=== PATIENT | male | born 1995 | race Asian ===

== ENCOUNTER 2018-12-16 07:04 | Day surgery (SDC) | payer OTHER ==
--- NOTE | 2018-12-06 16:01 | HP ---
CC: Dr. 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 Mr Bishop was evaluated by Dr. Barrios at [facility] because of partial phimosis and distal penile pain. He was also noted to have some episodes of balanitis requiring topical antibiotic treatment. He reports that for many years, he has noted a tight foreskin with discomfort upon retraction. This condition becomes more bothersome during erections. There have not been any episodes of urinary tract infections or voiding symptoms. The patient has not been sexually active recently. history is otherwise completely negative. No history of any voiding symptoms , urinary tract infections, or scrotal or testicular pain. PAST MEDICAL HISTORY AND SYSTEM REVIEW: He is in excellent health. He denies any cardiac or pulmonary diseases or symptoms. MEDICATIONS: He is on no chronic medications. ALLERGIES: He denies any allergies to medications. FAMILY HISTORY: Negative. SOCIAL HISTORY: He denies any alcohol intake and denies smoking. No recreational drug use. PHYSICAL EXAMINATION GENERAL: He is a pleasant and healthy-looking male. VITAL SIGNS: Blood pressure 110/70, pulse of 80. LUNGS: Normal. HEART: Normal. EXTERNAL GENITALIA: He is not circumcised. There is a partial phimosis. There are no penile lesions seen. The urethral meatus looks normal. Testes feel normal without any masses. No inguinal hernias. DIAGNOSTIC STUDIES/LAB DATA: His urinalysis is negative. IMPRESSION: Moderate symptomatic phimosis with past history of balanitis. PLAN/RECOMMENDATIONS: I discussed the options of management and the patient wants to proceed with a circumcision. I discussed the circumcision including the potential complications of infection and increased sensitivity of the glans penis. All his questions were answered. [id number]/[facility] #: [id number] [facility]ITALArmaan
[~2018-12-16 07:04] MED LIST: Buffered Lidocaine 1% SYRIN* 1 ML/SYRINGE INTRADERM ONE; Famotidine IV* 10 MG/ML 2 ML (20 mg) IV ONE; Lactated Ringers 1000 ML Bag* 1,000 ML IV SCH
[2018-12-16] MEDS ORDERED: Buffered Lidocaine 1% SYRIN* 1 ML/SYRINGE INTRADERM ONE (08:19)
[2018-12-16] MEDS ORDERED: Famotidine IV* 10 MG/ML 2 ML (20 mg) ONE (08:19)
[2018-12-16] MEDS ORDERED: Midazolam* 1 MG/ML 5 ML VIAL (5 MG) ONE (08:24)
[2018-12-16] MEDS ORDERED: fentaNYL* 50 MCG/ML 2 ML VIAL (100 MCG VIAL) ONE (08:24)
[2018-12-16] MEDS ORDERED: Bacitracin OINTMENT* 0.5% 0.5 oz TUBE ONE (09:50)
[2018-12-16] MEDS ORDERED: Lidocaine 1% INJ* 10 MG/ML 30 ML SDV ONE (09:50)
[2018-12-16] MEDS ORDERED: Bupivacaine 0.5%* 50 ML MDV VIAL ONE (10:34)
[2018-12-16] MEDS ORDERED: Ondansetron INJ* 2 MG/ML VIAL ONE (11:02)
[2018-12-16] MEDS ORDERED: Propofol* 10 MG/ML 20 ML BTL ONE ×2 (11:02→11:18)
[2018-12-16] MEDS ORDERED: Lidocaine 2% PF * 5 ML VIAL ONE (11:03)
[2018-12-16] MEDS ORDERED: DiMENhydriNATE IV* 50 MG/ML VIAL IV PUSH PRN (11:13)
[2018-12-16] MEDS ORDERED: oxyCODONE TAB* 5 MG TAB PO PRN (11:13)
[2018-12-16] MEDS ORDERED: Acetaminophen TAB* 325 MG PO PRN (11:13)
[2018-12-16] MEDS ORDERED: Naloxone* 0.4 MG/ML 1 ML VIAL IV PRN (11:13)
[2018-12-16] MEDS ORDERED: Ketorolac INJ* 15 MG/ML 1 ML VIAL IV PUSH ONE (12:02)
[2018-12-16] MEDS ORDERED: Ketorolac INJ* 30 MG/ML 1 ML VIAL ONE (12:06)
--- NOTE | 2018-12-16 12:48 | OP ---
CC: Dr. Brayan Barrios, [facility] * DATE OF OPERATION: 12/16/18 - [facility] DATE OF : 89 SURGEON: Dr. Khan. ANESTHESIOLOGIST: Dr. Gambino. ANESTHESIA: Penile block, IV sedation with MAC. PRE-OP DIAGNOSIS: Partial phimosis. POST-OP DIAGNOSIS: Partial phimosis. OPERATIVE PROCEDURE: Circumcision. INDICATION FOR PROCEDURE: Mr. Bishop is a 23-year-old male who was referred by Dr. Brayan Barrios at [facility] because of symptomatic phimosis. The condition has been bothersome especially during erections with some discomfort and the tight foreskin causing distal penile pain. There have not been any episodes of urinary tract infections. Physical examination confirmed partial phimosis. No penile lesion seen. I discussed the options of management and the patient elected to proceed with the circumcision. PATHOLOGY: Exam under anesthesia again showed partial phimosis. The urethral meatus looked normal. There were no changes of balanitis. There were no lesions noted on the glans penis or on the foreskin. DESCRIPTION OF PROCEDURE: With the patient in the supine position and after intravenous sedation with anesthesia monitoring, a total of 12 cc of 0.5% Marcaine without epinephrine were used for penile block achieving very good anesthesia. An incision was carried in the skin aspect of the foreskin at the level of the peña. The foreskin was then retracted and an incision was carried on the mucous membrane aspect of the foreskin about 1 cm proximal and parallel to the peña. The skin aspect of the frenulum was superficially incised preserving the frenular artery and nerve. The bleeders were electrocoagulated and controlled. The foreskin was then excised using cautery. Good hemostasis was achieved with coagulation current. Making sure there was no rotation of the penis, the stump of the foreskin was approximated using interrupted sutures of 4-0 chromic. The final result looked satisfactory. There was very good hemostasis. An antibiotic ointment was applied over the incision and gentle dressing was applied. The patient tolerated the procedure well and left the operating room in good condition. The specimen was foreskin. All the counts were correct. The blood loss was negligible. [id number]/[facility] #: [id number] [facility]
[2018-12-16 13:07] VITALS: BP 112/84
== END 2018-12-16 13:30 | disposition home or self-care (01) ==
LOC: OR 07:04
PROVIDERS: ATTEND Urology
DX: N47.1 Phimosis (principal); J45.909 Unspecified asthma, uncomplicated
CPT/HCPCS: 88304; A9270-GY; J1885; J2250; J2405; J2704; J3010; J3490